=== PATIENT | male | born 1985 | race American Indian/Alaskan Native ===

== ENCOUNTER 2016-08-16 14:32 | Observation (INO) | payer BC ==
[2016-08-16 14:32] VITALS: BMI 27.8
[2016-08-16 14:38] VITALS: TEMP 97.6; O2SAT 100
--- NOTE | 2016-08-16 14:47 | C.PDOC ---
History Of Present Illness <Darrel Soni DO - Last Filed: 08/16/16 19:45> <Cherie Vines - Last Filed: 08/18/16 09:16> 31-year-old male, presents to the emergency department with complaints of left sided chest numbness and near syncope, that started one hour ago. Patient notes onset while walking. Pt notes that numbness radiates to left arm. Patient denies loss of consciousness, cardiac history, or any other medical history. No other complaints at this time. (Cherie Vines) <Darrel Soni DO - Last Filed: 08/16/16 19:45> History Per: Patient History/Exam Limitations: no limitations <Cherie Vines - Last Filed: 08/18/16 09:16> Chief Complaint (Nursing): Weakness/Neurological Deficit Past Medical History Reviewed: Historical Data, Nursing Documentation, Vital Signs - Medical History PMH: Asthma Denies: Depression Family History: States: Unknown Family Hx - Social History Hx Tobacco Use: No Hx Alcohol Use: Yes Hx Substance Use: No - Immunization History Hx Tetanus Toxoid Vaccination: No Hx Influenza Vaccination: No Hx Pneumococcal Vaccination: No <Cherie Vines - Last Filed: 08/18/16 09:16> Vital Signs: Last Vital Signs Temp 97.6 F 08/16/16 14:35 Pulse 87 08/16/16 19:38 Resp 20 08/16/16 19:38 BP 133/80 08/16/16 19:38 Pulse Ox 100 08/18/16 09:13 - [facility] Procedures CLOSURE SKIN & SUBCUTANEOUS NEC (08/06/06) Review Of Systems Except As Marked, All Systems Reviewed And Found Negative. Constitutional: Negative for: Fever, Chills Cardiovascular: Negative for: Chest Pain Respiratory: Negative for: Cough, Shortness of Breath Gastrointestinal: Negative for: Nausea, Vomiting Skin: Negative for: Rash Neurological: Positive for: Numbness. Negative for: Weakness, Headache, Dizziness <Cherie Vines - Last Filed: 08/18/16 09:16> Physical Exam - Physical Exam Appears: Non-toxic, No Acute Distress Skin: Warm, Dry, No Rash Head: Atraumatic, Normacephalic Eye(s): bilateral: Normal Inspection, PERRL Nose: Normal Oral Mucosa: Moist Lips: Normal Appearing Neck: Normal ROM Cardiovascular: Rhythm Regular Respiratory: Normal Breath Sounds, No Accessory Muscle Use Extremity: Normal ROM Neurological/Psych: Oriented x3, Normal Speech <Cherie Vines - Last Filed: 08/18/16 09:16> ED Course And Treatment - Laboratory Results Result Diagrams: 08/16/16 15:02 08/16/16 15:02 <Darrel Soni DO - Last Filed: 08/16/16 19:45> - Laboratory Results Result Diagrams: 08/16/16 15:02 08/16/16 15:02 ECG: Interpreted By Me ECG Rhythm: Sinus Rhythm ECG Interpretation: Normal Rate From EC O2 Sat by Pulse Oximetry: 100 - Radiology CXR: Interpreted by Me, Viewed By Me CXR Interpretation: Yes: No Acute Disease <Cherie Vines - Last Filed: 08/18/16 09:16> NIHSS Stroke Scale - Date/Time Evaluation Performed Date Performed: 08/16/16 Time Performed: 14:48 When Was NIHSS Performed: Baseline - How Severe is the Stoke Level of Consciousness: 0=Alert LOC to Questions: 0=Both comments correct LOC to commands: 0=Obeys both correctly Best Gaze: 0=Normal Visual: 0=No visual loss Facial: 0=Normal Motor Arm - Left: 0=No drift Motor Arm - Right: 0=No drift Motor Leg - Left: 0=No drift Motor Leg - Right: 0=No drift Limb Ataxia: 0=Absent Sensory: 0=Normal Best Language: 0=No aphasia Dysarthia: 0=Normal articulation Extinction & Inattention (Neglect): 0=Normal, no object Score: 0 Severity Of Stroke: 0= No Stroke <Cherie Vines - Last Filed: 08/18/16 09:16> rTPA Inclusion/Exclusion - Refusal of Treatment Patient Refused Treatment: No - Inclusion Criteria for Altepase Patient is 18 years or Older: Yes The Clinical Diagnosis of Ischemic Stroke That is Causing a Potentially Disabling Neurological Deficit: No Time of Onset is Well Established to be Less Than 270 Minute Before Treatment Would Begin: Yes Risk/Benefit Discussed With Patient/Family Member Present: Yes - Exclusion Criteria for Altepase Uncontrolled Hypertension at Time of Treatment (Systolic BP above 185 or Diastolic BP above 110 mmHg): No Active Internal Bleeding: No Known Bleeding Diathesis Including but Not Limited to: Platelets Below 100,000/ mm,PTT Above 40 sec After Heparin Use, Current Use of Oral Anitcoagulant With INR Greater Than 1.7 or PT Greater Than 15 secs: No Evidence of an Intracranial Hemorrhage: No Evidence of Major Acute Infarct With Signs Greater Than 1/3 MCA Territory: No Suspicion of Subarachnoid Hemorrhage on Pretreatment Evaluation Even if CT Head Negative For Hemorrhage: No - Warning to TPA With Conditions Following Conditions Weighed Against Anticipated Benefit: Yes Condition: Stroke Serevity Too Mild <Cherie Vines - Last Filed: 08/18/16 09:16> ED OBSERVATION Discharge: Yes <Darrel Soni DO - Last Filed: 08/16/16 19:45> Date of observation admission: 08/16/16 Time of observation admission: 14:45 <Cherie Vines - Last Filed: 08/18/16 09:16> - Observation admission statement Patient is being placed in observation because:: CHEST PAIN, NEAR SYNCOPE (Cherie Vines) - Goals of Observation Goals of observation are:: NEG ACS, SX IMPROVE (Cherie Vines) - Progress Note Progress Note: 08/16/16 16:41 ASYMPT APEPARS COMFORTABLE VSS. REPEAT TROP @ 1900 08/16/16 19:00 S/O DR DARRYL ROWAN US, DISPO (Cherie Vines) Disposition <Darrel Soni DO - Last Filed: 08/16/16 19:45> Counseled Patient/Family Regarding: Studies Performed, Diagnosis - Disposition Disposition Time: 20:00 <Cherie Vines - Last Filed: 08/18/16 09:16> - Disposition Disposition: HOME/ ROUTINE Condition: GOOD - Clinical Impression Clinical Impression: Chest pain <Darrel Soni DO - Last Filed: 08/16/16 19:45> - Scribe Statement The provider has reviewed the documentation as recorded by the Scribe <Cherie Vines - Last Filed: 08/18/16 09:16> - Scribe Statement Lyudmila Reed (Cherie Vines)
[2016-08-16 15:06] LABS: BASO % 0.6 % (0.0-2.0); EOS # 0.1 K/uL (0.0-0.7); EOS % 2.5 % (0.0-4.0); HEMATOCRIT 42.7 % (35.0-51.0); LYMPH # 1.3 K/uL (1.0-4.3); LYMPH % 32.4 % (20.0-40.0); MEAN CELL VOLUME 88.1 fL (80.0-94.0); MEAN CORPUSCULAR HEMOGLOBIN 29.1 pg (27.0-31.0); MONO # 0.7 K/uL (0.0-0.8); MONO % 16.6 % (0.0-10.0); RED CELL DISTRIBUTION WIDTH 14.5 % (11.5-14.5); WHITE BLOOD COUNT 4.1 K/uL (4.8-10.8)
[2016-08-16 15:15] LABS: CHLORIDE 96 mmol/L (98-107); POTASSIUM 3.8 mmol/L (3.6-5.2); SODIUM 137 mmol/L (132-148)
[2016-08-16 15:17] LABS: ALB/GLOB RATIO 1.3 (1.0-2.1); ALKALINE PHOSPHATASE 51 U/L (38-126); ALT/SGPT 14 U/L (21-72); AST/SGOT 23 U/L (17-59); BILIRUBIN,TOTAL 1.2 mg/dL (0.2-1.3); BLOOD UREA NITROGEN 12 mg/dL (9-20); CARBON DIOXIDE 28 mmol/L (22-30); GFR AFRICAN-AMERICAN > 60; TOTAL PROTEIN 7.6 g/dL (6.3-8.3)
[2016-08-16 15:18] LABS: CALCIUM 8.9 mg/dl (8.6-10.4); GLUCOSE,RANDOM 89 mg/dL (75-110)
--- NOTE | 2016-08-16 16:09 | CT ---
PROCEDURE: CT HEAD WITHOUT CONTRAST. HISTORY: Left arm numbness COMPARISON: 12/20/2015 TECHNIQUE: Axial computed tomography images were obtained through the head/brain without intravenous contrast. Radiation dose: Total exam DLP = 898 mGy-cm. This CT exam was performed using one or more of the following dose reduction techniques: Automated exposure control, adjustment of the mA and/or kV according to patient size, and/or use of iterative reconstruction technique. FINDINGS: HEMORRHAGE: No intracranial hemorrhage. BRAIN: No mass effect or edema. No atrophy or chronic microvascular ischemic changes. VENTRICLES: Unremarkable. No hydrocephalus. CALVARIUM: Unremarkable. PARANASAL SINUSES: Unremarkable as visualized. No significant inflammatory changes. MASTOID AIR CELLS: Unremarkable as visualized. No inflammatory changes. OTHER FINDINGS: None. IMPRESSION: No acute intracranial abnormality. If focal neurologic deficit persists, consider MRI.
--- NOTE | 2016-08-16 16:24 | RAD ---
PROCEDURE: CHEST RADIOGRAPH, 1 VIEW HISTORY: chest pain COMPARISON: None available. FINDINGS: LUNGS: Mild venous congestion. PLEURA: No pneumothorax or pleural fluid seen. CARDIOVASCULAR: Normal. OSSEOUS STRUCTURES: No significant abnormalities. VISUALIZED UPPER ABDOMEN: Normal. OTHER FINDINGS: None. IMPRESSION: Mild venous congestion.
[2016-08-16 19:39] VITALS: BP 133/80; PULSE 87; RESP 20
--- NOTE | 2016-08-18 11:38 | CARD ---
APPROVED REPORT EKG Measurement Heart [id number] 138P36 [id number] <Conclusion> Normal sinus rhythm with sinus arrhythmia Normal ECG
== END 2016-08-16 19:46 | disposition home or self-care (01) ==
LOC: C.ER 14:32 → C.9OBSV 14:45
PROVIDERS: ADMIT Emergency Medicine; ATTEND Emergency Medicine
DX: R07.9 Chest pain, unspecified (principal); R55 Syncope and collapse; R20.0 Anesthesia of skin; J45.909 Unspecified asthma, uncomplicated
CPT/HCPCS: 36415; 70450; 71010; 80053; 82948; 84484; 85025; 85378; 99285; G0378

== ENCOUNTER 2016-10-11 13:08 | Observation (INO) | payer BC ==
[2016-10-11 13:08] VITALS: BMI 27.8
[2016-10-11 13:15] VITALS: RESP 18; O2SAT 100
--- NOTE | 2016-10-11 13:45 | C.PDOC ---
History Of Present Illness 31-year-old male, presents to the emergency department with complaints of right chest discomfort x2 days. Patient notes that discomfort is constant and localized. States "I just don't feel right." He is s/p endoscopy 04/25, "they said it was all good" pending colonoscopy. No shortness of breath, nausea/ vomiting. Patient seen on 08/16 for chest pain and syncope. CO R CHEST DISCOMFORT X 2 DAYS. CONSTANT LOCALIZED. "I JUST DONT FEEL RIGHT". S/ P ENDOCSCOPY 04/2016, "THEY SAID IT WAS ALL GOOD" PENDING COLONOSCOPY. NO SOB, NV. SEEN 08/16 FOR CP, SYNCOPE EXAM NEG Time Seen by Provider: 10/11/16 13:38 Chief Complaint (Nursing): Chest Pain History Per: Patient History/Exam Limitations: no limitations Onset/Duration Of Symptoms: Days Current Symptoms Are (Timing): Still Present Severity: Moderate Past Medical History Reviewed: Historical Data, Nursing Documentation, Vital Signs Vital Signs: Last Vital Signs Temp 98.2 F 10/11/16 13:15 Pulse 84 10/11/16 13:15 Resp 18 10/11/16 13:15 BP 155/99 H 10/11/16 14:20 Pulse Ox 100 10/11/16 16:41 - Medical History PMH: Asthma Denies: Depression - [facility] Procedures CLOSURE SKIN & SUBCUTANEOUS NEC (08/06/06) Family History: States: No Known Family Hx - Social History Hx Tobacco Use: No Hx Alcohol Use: Yes Hx Substance Use: No - Immunization History Hx Tetanus Toxoid Vaccination: No Hx Influenza Vaccination: No Hx Pneumococcal Vaccination: No Review Of Systems Except As Marked, All Systems Reviewed And Found Negative. Constitutional: Negative for: Fever, Chills Cardiovascular: Positive for: Chest Pain. Negative for: Palpitations Respiratory: Negative for: Shortness of Breath Gastrointestinal: Negative for: Nausea, Vomiting Neurological: Negative for: Weakness, Numbness, Headache, Dizziness Physical Exam - Physical Exam Appears: Non-toxic, No Acute Distress Skin: Warm, Dry, No Rash Head: Atraumatic, Normacephalic Eye(s): bilateral: Normal Inspection, PERRL, EOMI Nose: Normal Oral Mucosa: Moist Lips: Normal Appearing Neck: Normal ROM Cardiovascular: Rhythm Regular, No Murmur Respiratory: Normal Breath Sounds, No Accessory Muscle Use Gastrointestinal/Abdominal: Soft, No Tenderness Extremity: Normal ROM Neurological/Psych: Oriented x3 ED Course And Treatment - Laboratory Results Result Diagrams: 10/11/16 14:10 10/11/16 14:10 ECG: Interpreted By Me ECG Rhythm: Sinus Rhythm ECG Interpretation: Normal Rate From EC O2 Sat by Pulse Oximetry: 100 Pulse Ox Interpretation: Normal - Radiology CXR: Interpreted by Me CXR Interpretation: Yes: No Acute Disease Progress - Data Reviewed Data Reviewed: EKG, Old records ED OBSERVATION Discharge: Yes Date of observation admission: 10/11/16 Time of observation admission: 13:56 - Observation admission statement Patient is being placed in observation because:: CHEST/RUQ PAIN - Goals of Observation Goals of observation are:: NEG ACUTE ABD, SX IMPROVE - Progress Note Progress Note: 10/11/16 16:22 LABS, US NEG 10/11/16 16:42 VSS ADVISED NEED TO PMD FU. Disposition Counseled Patient/Family Regarding: Studies Performed, Diagnosis, Need For Followup, Rx Given - Disposition Disposition: HOME/ ROUTINE Disposition Time: 16:42 Condition: GOOD - Clinical Impression Clinical Impression: Abdominal discomfort, Chest discomfort - Scribe Statement The provider has reviewed the documentation as recorded by the Radibbala Reed All medical record entries made by the Radibbala were at my direction and personally dictated by me. I have reviewed the chart and agree that the record accurately reflects my personal performance of the history, physical exam, medical decision making, and the department course for this patient. I have also personally directed, reviewed, and agree with the discharge instructions and disposition.
[2016-10-11] MEDS ORDERED: Sodium Chloride 0.9% 1,000 ML IV ONE ×2 (13:55)
[2016-10-11 14:19] LABS: BASO % 0.8 % (0.0-2.0); EOS # 0.1 K/uL (0.0-0.7); EOS % 1.5 % (0.0-4.0); HEMATOCRIT 45.2 % (35.0-51.0); LYMPH # 1.2 K/uL (1.0-4.3); LYMPH % 31.7 % (20.0-40.0); MEAN CELL VOLUME 87.2 fL (80.0-94.0); MEAN CORPUSCULAR HEMOGLOBIN 29.5 pg (27.0-31.0); MEAN CORPUSCULAR HGB CONC 33.8 g/dL (33.0-37.0); MONO # 0.6 K/uL (0.0-0.8); MONO % 16.2 % (0.0-10.0); NRBC % 0.1 % (0.0-2.0); RED CELL DISTRIBUTION WIDTH 13.5 % (11.5-14.5); WHITE BLOOD COUNT 3.9 K/uL (4.8-10.8)
[2016-10-11 14:24] LABS: CHLORIDE 93 mmol/L (98-107)
[2016-10-11 14:25] LABS: POTASSIUM 3.3 mmol/L (3.6-5.2); SODIUM 132 mmol/L (132-148)
[2016-10-11 14:27] LABS: ALB/GLOB RATIO 1.3 (1.0-2.1); ALKALINE PHOSPHATASE 70 U/L (38-126); AST/SGOT 23 U/L (17-59); BILIRUBIN,TOTAL 1.9 mg/dL (0.2-1.3); BLOOD UREA NITROGEN 8 mg/dL (9-20); CARBON DIOXIDE 27 mmol/L (22-30); GFR AFRICAN-AMERICAN > 60; TOTAL PROTEIN 8.1 g/dL (6.3-8.3)
[2016-10-11 14:28] LABS: ALT/SGPT 22 U/L (21-72); GLUCOSE,RANDOM 110 mg/dL (75-110)
--- NOTE | 2016-10-11 15:27 | US ---
HISTORY: abd pain COMPARISON: None. TECHNIQUE: Sonographic evaluation of the abdomen. FINDINGS: LIVER: Liver is unremarkable in echogenicity. No focal liver mass is identified. No intrahepatic biliary ductal dilatation is identified. Portal vein is patent with normal hepatopetal flow. GALLBLADDER: The gallbladder is physiologically distended. No gallstones, gallbladder wall thickening, or pericholecystic fluid is identified.No sonographic Clark's sign was appreciated during the exam. COMMON BILE DUCT: Normal in caliber measuring 0.3 cm. PANCREAS: Not visualized due to overlying bowel gas. RIGHT KIDNEY: Measures 11cm. Unremarkable in echogenicity. No shadowing renal stone, cyst, or hydronephrosis is identified AORTA: No aneurysmal dilatation of the visualized portions. IVC: Visualized portions are unremarkable.. OTHER FINDINGS: None. IMPRESSION: Unremarkable right upper quadrant ultrasound.
--- NOTE | 2016-10-11 16:30 | RAD ---
HISTORY: abd pain COMPARISON: Comparison chest 08/26/2016 TECHNIQUE: Chest PA and lateral FINDINGS: LUNGS: No active pulmonary disease. PLEURA: No significant pleural effusion identified. No pneumothorax apparent. CARDIOVASCULAR: Normal. OSSEOUS STRUCTURES: No significant abnormalities. VISUALIZED UPPER ABDOMEN: Normal. OTHER FINDINGS: None. IMPRESSION: No active disease.
[2016-10-11 16:43] VITALS: BP 136/80; PULSE 77; TEMP 97.9
[2016-10-11] MEDS ORDERED: Pantoprazole 40 mg EC Tab PO STA (16:45)
--- NOTE | 2016-10-17 16:23 | CARD ---
APPROVED REPORT EKG Measurement Heart [id number] 150P54 [id number] <Conclusion> Normal sinus rhythm Possible Left atrial enlargement Nonspecific T wave abnormality Abnormal ECG
== END 2016-10-11 16:42 | disposition home or self-care (01) ==
LOC: C.ER 13:08 → C.9OBSV 13:30
PROVIDERS: ADMIT Emergency Medicine; ATTEND Emergency Medicine
DX: R07.89 Other chest pain (principal)
CPT/HCPCS: 36415; 71020; 76705; 80053; 83690; 84484; 85025; 96360; 99284; G0378

== ENCOUNTER 2016-10-29 16:26 | Emergency (ER) | payer BC ==
[2016-10-29 16:27] VITALS: BMI 27.8
[2016-10-29] MEDS ORDERED: Sodium Chloride 0.9% 1,000 ML IV ONE (16:58)
[2016-10-29] MEDS ORDERED: Sodium Chloride 0.9% 1,000 ML ONE (17:07)
[2016-10-29 17:28] LABS: BASO % 0.9 % (0.0-2.0); EOS % 0.3 % (0.0-4.0); HEMATOCRIT 46.1 % (35.0-51.0); LYMPH # 0.7 K/uL (1.0-4.3); MEAN CELL VOLUME 88.7 fL (80.0-94.0); MEAN CORPUSCULAR HEMOGLOBIN 29.7 pg (27.0-31.0); MEAN CORPUSCULAR HGB CONC 33.5 g/dL (33.0-37.0); MEAN PLATELET VOLUME 6.9 fL (7.2-11.7); MONO # 0.4 K/uL (0.0-0.8); MONO % 8.2 % (0.0-10.0); RED CELL DISTRIBUTION WIDTH 13.3 % (11.5-14.5); WHITE BLOOD COUNT 5.1 K/uL (4.8-10.8)
[2016-10-29 17:36] LABS: CHLORIDE 93 mmol/L (98-107)
[2016-10-29 17:37] LABS: POTASSIUM 3.5 mmol/L (3.6-5.2); SODIUM 132 mmol/L (132-148)
[2016-10-29 17:39] LABS: ALB/GLOB RATIO 1.1 (1.0-2.1); ALKALINE PHOSPHATASE 70 U/L (38-126); ALT/SGPT 23 U/L (21-72); AST/SGOT 20 U/L (17-59); BILIRUBIN,TOTAL 1.7 mg/dL (0.2-1.3); BLOOD UREA NITROGEN 8 mg/dL (9-20); CALCIUM 8.5 mg/dl (8.6-10.4); CARBON DIOXIDE 26 mmol/L (22-30); GFR AFRICAN-AMERICAN > 60; GLUCOSE,RANDOM 95 mg/dL (75-110); TOTAL PROTEIN 8.2 g/dL (6.3-8.3)
--- NOTE | 2016-10-29 18:36 | C.PDOC ---
History Of Present Illness A 31 y/o male comes in stating "I don't feel right" with mild nausea and dizziness for about 3 days. Pt notes chest pain, SOB, but denies vomiting, fever , chills, sick contact, lightheadedness, palpitations, lower extremity pain, diaphoresis, weakness, or any other complaints. Pt states he is eating normally. Time Seen by Provider: 10/29/16 17:34 Chief Complaint (Nursing): Dizziness/Lightheaded History Per: Patient History/Exam Limitations: no limitations Onset/Duration Of Symptoms: Days Current Symptoms Are (Timing): Still Present Fall Associated With With Symptoms: No Severity: Mild Recent travel outside of the [place]: No Additional History Per: Patient Past Medical History Reviewed: Historical Data, Nursing Documentation, Vital Signs Vital Signs: Last Vital Signs Temp 98.1 F 10/29/16 18:45 Pulse 73 10/29/16 18:45 Resp 18 10/29/16 18:45 BP 136/79 10/29/16 18:45 Pulse Ox 100 10/29/16 18:45 - Medical History PMH: Asthma Denies: Depression - [facility] Procedures CLOSURE SKIN & SUBCUTANEOUS NEC (08/06/06) Family History: States: Unknown Family Hx - Social History Hx Tobacco Use: No Hx Alcohol Use: Yes Hx Substance Use: No - Immunization History Hx Tetanus Toxoid Vaccination: No Hx Influenza Vaccination: No Hx Pneumococcal Vaccination: No Review Of Systems Except As Marked, All Systems Reviewed And Found Negative. Constitutional: Positive for: Malaise. Negative for: Fever, Chills, Sweats, Weakness Cardiovascular: Positive for: Chest Pain. Negative for: Palpitations, Light Headedness Respiratory: Positive for: Shortness of Breath Gastrointestinal: Positive for: Nausea. Negative for: Vomiting Musculoskeletal: Negative for: Leg Pain Neurological: Positive for: Dizziness Physical Exam - Physical Exam Appears: Non-toxic, No Acute Distress Skin: Warm, Dry Head: Atraumatic, Normacephalic Eye(s): bilateral: Normal Inspection Oral Mucosa: Moist Neck: Supple Chest: Symmetrical, No Tenderness Cardiovascular: Rhythm Regular, No Murmur Respiratory: Normal Breath Sounds, No Accessory Muscle Use, No Rales, No Rhonchi , No Wheezing Gastrointestinal/Abdominal: Soft, No Tenderness Back: Normal Inspection Neurological/Psych: Oriented x3, Normal Speech, Normal Cognition, Other (No focal deficit) Gait: Steady ED Course And Treatment - Laboratory Results Result Diagrams: 10/29/16 17:23 10/29/16 17:23 O2 Sat by Pulse Oximetry: 99 (RA) Pulse Ox Interpretation: Normal Medical Decision Making Medical Decision Making: Impression: A 31 y/o male comes in stating "I don't feel right" with mild nausea and dizziness for about 3 days. Plans: Pepcid Zpfran IV fluids Reassess Disposition - Disposition Referrals: [facility] Alondra Nazario, [Non-Staff] - Disposition: HOME/ ROUTINE Disposition Time: 18:00 Condition: GOOD Additional Instructions: Thank you for letting us take care of you today. Your provider was Dr. Soni. You were treated for sinusitis. The emergency medical care you received today was directed at your acute symptoms. If you were prescribed any medication, please fill it and take as directed. It may take several days for your symptoms to resolve. Return to the Emergency Department if your symptoms worsen, do not improve, or if you have any other problems. Please contact your doctor or call one of the physicians/clinics you have been referred to that are listed on the Patient Visit Information form that is included in your discharge packet. Bring any paperwork you were given at discharge with you along with any medications you are taking to your follow up visit. Our treatment cannot replace ongoing medical care by a primary care provider (PCP) outside of the emergency department. Thank you for allowing the [facility] team to be part of your care today. Follow up with your doctor in 2 days to be re-evaluated. Prescriptions: Amoxicillin/Clavulanate [Augmentin 875 MG-125 MG] 1 tab PO Q12 #14 tab Ibuprofen [Motrin] 600 mg PO Q6 PRN #20 tab PRN Reason: Pain, Moderate (4-7) Instructions: Sinusitis (ED) - Clinical Impression Clinical Impression: Sinusitis - Scribe Statement The provider has reviewed the documentation as recorded by the Scribe Emilia patrick All medical record entries made by the Scribe were at my direction and personally dictated by me. I have reviewed the chart and agree that the record accurately reflects my personal performance of the history, physical exam, medical decision making, and the department course for this patient. I have also personally directed, reviewed, and agree with the discharge instructions and disposition.
[2016-10-29 18:46] VITALS: BP 136/79; PULSE 73; RESP 18; TEMP 98.1
[2016-10-29 18:53] VITALS: O2SAT 99
== END 2016-10-29 19:10 | disposition home or self-care (01) ==
LOC: C.ER 16:26
DX: J32.9 Chronic sinusitis, unspecified (principal)
CPT/HCPCS: 80053; 83690; 85025; 99285; G0480; J7040

== ENCOUNTER 2016-11-02 09:19 | Emergency (ER) | payer BC ==
[2016-11-02 09:19] VITALS: BMI 27.8
--- NOTE | 2016-11-02 10:14 | C.PDOC ---
History Of Present Illness Patient BIBA for evaluation of RUQ pain, and sesnation of his heart racing since waking up this morning. Patient states symptoms began a few months ago, but he feels like they have been worsening. During most recent ED visits, blood work, CXR, RUQ US done and were unremarkable. He denies chest pain, SOB, fever, cough, vomiting diarrhea. He does state he has been having yellow colored stools. Patient has GI specialist, has had endoscopy which was "normal ", however is scheduled to have upcoming colonoscopy. Time Seen by Provider: 11/02/16 09:36 Chief Complaint (Nursing): Palpitations History Per: Patient History/Exam Limitations: no limitations Onset/Duration Of Symptoms: Persistent Current Symptoms Are (Timing): Still Present Severity: Mild Past Medical History Reviewed: Historical Data, Nursing Documentation, Vital Signs Vital Signs: Last Vital Signs Temp 97.8 F 11/02/16 12:49 Pulse 77 11/02/16 12:49 Resp 16 11/02/16 12:49 BP 132/86 11/02/16 12:49 Pulse Ox 95 11/02/16 13:24 - Medical History PMH: Asthma - [facility] Procedures CLOSURE SKIN & SUBCUTANEOUS NEC (08/06/06) Family History: States: No Known Family Hx - Social History Hx Tobacco Use: No Hx Alcohol Use: Yes Hx Substance Use: No - Immunization History Hx Tetanus Toxoid Vaccination: No Hx Influenza Vaccination: No Hx Pneumococcal Vaccination: No Review Of Systems Except As Marked, All Systems Reviewed And Found Negative. Constitutional: Negative for: Fever, Chills Cardiovascular: Positive for: Palpitations. Negative for: Chest Pain Respiratory: Negative for: Cough, Shortness of Breath Gastrointestinal: Positive for: Nausea, Abdominal Pain. Negative for: Vomiting , Diarrhea Physical Exam - Physical Exam Appears: Well, Non-toxic, No Acute Distress Oral Mucosa: Moist Cardiovascular: Rhythm Regular Respiratory: Normal Breath Sounds, No Rales, No Rhonchi, No Wheezing Gastrointestinal/Abdominal: Bowel Sounds, Soft, Tenderness (RUQ mild TTP), No Guarding, No Rebound Extremity: Normal ROM Neurological/Psych: Oriented x3 ED Course And Treatment - Laboratory Results Result Diagrams: 11/02/16 10:20 11/02/16 10:20 ECG: Interpreted By Me, Viewed By Me (NSR 68 bpm, normal axis, no acute ST/T wave changes) ECG Interpretation: Normal O2 Sat by Pulse Oximetry: 95 (RA) Pulse Ox Interpretation: Normal Progress Note: Blood work, EKG, CT scan abd/pelvis ordered and reviewed. Patient given IVB NS bolus, PO Kdur. Reevaluation Time: 12:45 Reassessment Condition: Improved (Patient reassessed, is currently resting comfortably, in no pain/distress. On exam, abdomen is soft and nontender. Blood work & EKG unremarkable except for milh hypokalemia. Additional blood work and ultrasound done during prior visits - ddimer, babak, UDS and US (-). Patient instructed to follow up with GI specialist within 1 week for colonoscopy scheduling. He has GI to follow up with, not on staff here at [facility]. Patient understands he should return to ED if symptoms worsen.) Disposition Counseled Patient/Family Regarding: Studies Performed, Diagnosis, Need For Followup - Disposition Disposition: HOME/ ROUTINE Disposition Time: 12:45 Condition: STABLE Additional Instructions: FOLLOW UP WITH YOUR GI SPECIALIST WITHIN 1 WEEK RETURN TO ER IF SYMPTOMS WORSEN Instructions: Acute Abdominal Pain (ED) Print Language: BRITISH - POA Present On Arrival: None - Clinical Impression Clinical Impression: Palpitations, RUQ abdominal pain
[2016-11-02] MEDS ORDERED: Sodium Chloride 0.9% 1,000 ML ONE (10:16)
[2016-11-02] MEDS ORDERED: Sodium Chloride 0.9% 1,000 ML IV ONE (10:16)
[2016-11-02 10:24] LABS: BASO # 0.1 K/uL (0.0-0.2); BASO % 0.9 % (0.0-2.0); EOS # 0.1 K/uL (0.0-0.7); HEMATOCRIT 42.3 % (35.0-51.0); LYMPH # 1.4 K/uL (1.0-4.3); LYMPH % 25.7 % (20.0-40.0); MEAN CELL VOLUME 87.4 fL (80.0-94.0); MEAN CORPUSCULAR HEMOGLOBIN 29.1 pg (27.0-31.0); MEAN CORPUSCULAR HGB CONC 33.3 g/dL (33.0-37.0); MEAN PLATELET VOLUME 7.1 fL (7.2-11.7); MONO # 0.7 K/uL (0.0-0.8); MONO % 12.6 % (0.0-10.0); NRBC % 0.1 % (0.0-2.0); RED CELL DISTRIBUTION WIDTH 13.1 % (11.5-14.5); WHITE BLOOD COUNT 5.5 K/uL (4.8-10.8)
[2016-11-02 10:33] LABS: CHLORIDE 95 mmol/L (98-107); SODIUM 134 mmol/L (132-148)
[2016-11-02 10:34] LABS: POTASSIUM 3.1 mmol/L (3.6-5.2)
[2016-11-02 10:36] LABS: ALB/GLOB RATIO 1.2 (1.0-2.1); ALKALINE PHOSPHATASE 65 U/L (38-126); ALT/SGPT 16 U/L (21-72); AST/SGOT 18 U/L (17-59); BILIRUBIN,TOTAL 1.7 mg/dL (0.2-1.3); BLOOD UREA NITROGEN 9 mg/dL (9-20); CARBON DIOXIDE 27 mmol/L (22-30); GFR AFRICAN-AMERICAN > 60; GLUCOSE,RANDOM 90 mg/dL (75-110); TOTAL PROTEIN 7.5 g/dL (6.3-8.3)
[2016-11-02 10:37] LABS: CALCIUM 8.3 mg/dl (8.6-10.4)
[2016-11-02] MEDS ORDERED: Potassium Chloride 20 mEq ER Tab PO STA (10:39)
[2016-11-02] MEDS ORDERED: Potassium Chloride 20 mEq ER Tab PO ONE (10:50)
[2016-11-02] MEDS ORDERED: Iohexol 300 100 ML IJ ONE (11:12)
--- NOTE | 2016-11-02 12:22 | CT ---
PROCEDURE: CT Abdomen and Pelvis with contrast HISTORY: PERSISTENT ABDOMINAL PAIN COMPARISON: None. TECHNIQUE: Contrast dose: 100 mL Omnipaque 300 Radiation dose: Total exam DLP = 413.35 mGy-cm. This CT exam was performed using one or more of the following dose reduction techniques: Automated exposure control, adjustment of the mA and/or kV according to patient size, and/or use of iterative reconstruction technique. FINDINGS: LOWER THORAX: Unremarkable. LIVER: Unremarkable. No gross lesion or ductal dilatation. GALLBLADDER AND BILE DUCTS: Unremarkable. PANCREAS: Unremarkable. No gross lesion or ductal dilatation. SPLEEN: Unremarkable. ADRENALS: Unremarkable. No mass. KIDNEYS AND URETERS: Very mild bilateral hydronephrosis and hydroureter. No renal mass, calculus or hydronephrosis. No ureteral calculus. VASCULATURE: Unremarkable. No aortic aneurysm. BOWEL: Unremarkable. No obstruction. No gross mural thickening. APPENDIX: Normal appendix. PERITONEUM: Unremarkable. No free fluid. No free air. LYMPH NODES: Unremarkable. No enlarged lymph nodes. BLADDER: Distended. No mural thickening. REPRODUCTIVE: Unremarkable prostate BONES: No acute fracture. OTHER FINDINGS: None. IMPRESSION: Distended bladder with very mild bilateral hydroureteronephrosis. Uncertain significance. Consider bladder outlet obstruction. Correlate clinically. No other abnormality.
[2016-11-02 12:50] VITALS: BP 132/86; PULSE 77; RESP 16; TEMP 97.8
[2016-11-02 12:59] VITALS: O2SAT 95
--- NOTE | 2016-11-03 10:06 | CARD ---
APPROVED REPORT EKG Measurement Heart [id number] [place] 144P44 [id number] <Conclusion> Normal sinus rhythm Normal ECG
== END 2016-11-02 13:08 | disposition home or self-care (01) ==
LOC: C.ER 09:19
DX: R00.2 Palpitations (principal); R10.11 Right upper quadrant pain
CPT/HCPCS: 74177; 80053; 83690; 85025; 93005; 96360; 99284; J7040; Q9967

== ENCOUNTER 2016-11-12 06:24 | Emergency (ER) | payer BC ==
[2016-11-12 06:24] VITALS: BMI 27.1
[2016-11-12 06:40] VITALS: TEMP 98
[2016-11-12 07:46] LABS: SPERM URINE RARE /hpf; URINE BILIRUBIN NEGATIVE (NEGATIVE); URINE BLOOD NEGATIVE (NEGATIVE); URINE CLARITY Hazy (Clear); URINE COLOR Straw (YELLOW); URINE GLUCOSE (UA) NORMAL (Normal); URINE LEUKOCYTE ESTERASE NEG Leu/uL (Negative); URINE NITRATE NEGATIVE (NEGATIVE); URINE PROTEIN NEGATIVE (NEGATIVE); URINE UROBILINOGEN NORMAL mg/dL (0.2-1.0)
[2016-11-12 07:47] LABS: BASO # 0.1 K/uL (0.0-0.2); EOS # 0.1 K/uL (0.0-0.7); EOS % 1.2 % (0.0-4.0); HEMOGLOBIN 15.1 g/dL (12.0-18.0); LYMPH # 1.7 K/uL (1.0-4.3); LYMPH % 20.8 % (20.0-40.0); MEAN CELL VOLUME 86.1 fL (80.0-94.0); MEAN CORPUSCULAR HEMOGLOBIN 29.4 pg (27.0-31.0); MEAN CORPUSCULAR HGB CONC 34.1 g/dL (33.0-37.0); MEAN PLATELET VOLUME 7.1 fL (7.2-11.7); MONO # 0.8 K/uL (0.0-0.8); MONO % 9.7 % (0.0-10.0); NEUT # 5.5 K/uL (1.8-7.0); NEUT % 67.3 % (50.0-75.0); NRBC % 0.1 % (0.0-2.0); RBC 5.13 Mil/uL (4.40-5.90); RED CELL DISTRIBUTION WIDTH 13.3 % (11.5-14.5); WHITE BLOOD COUNT 8.2 K/uL (4.8-10.8)
[2016-11-12 08:02] LABS: GFR AFRICAN-AMERICAN > 60; GFR NON-AFRICAN AMERICAN > 60
[2016-11-12 08:03] LABS: ALB/GLOB RATIO 1.1 (1.0-2.1); ALT/SGPT 223 U/L (21-72); AST/SGOT 102 U/L (17-59); BLOOD UREA NITROGEN 18 mg/dL (9-20); CALCIUM 9.5 mg/dl (8.6-10.4)
[2016-11-12 08:10] LABS: BARBITURATES, UR NEGATIVE (NEGATIVE)
[2016-11-12 08:11] LABS: BENZODIAZEPINES, UR NEGATIVE (NEGATIVE)
[2016-11-12 08:14] LABS: OPIATES, UR NEGATIVE (NEGATIVE); PHENCYCLIDINE, UR NEGATIVE (NEGATIVE)
--- NOTE | 2016-11-12 08:22 | C.PDOC ---
History Of Present Illness 31-year-old male, presents to the emergency department with complaints of chest pain, palpitations and anxiety. Patient states he was drinking "go-lightly" in order to prepare for colonoscopy, but he feels that he drank too much, and became dehydrated, after which he drank a lot of water, causing his Sodium to drop and have a seizure. patient was admitted to the hospital in order to regulate sodium, but his blood pressure began rising; Patient was treated with anti-hypertensive medication, but he developed anxiety, associated with palpitations and chest pain, resulting in him coming to the ED for evaluation. Denies any nausea/vomiting, headache, fevers, chills, shortness of breath, dizziness, or any other associated symptoms. No other complaints at this time. Time Seen by Provider: 11/12/16 07:13 Chief Complaint (Nursing): Chest Pain Past Medical History Reviewed: Historical Data, Nursing Documentation, Vital Signs Vital Signs: Last Vital Signs Temp 98 F 11/12/16 06:31 Pulse 95 H 11/12/16 06:52 Resp 16 11/12/16 06:31 BP 137/96 H 11/12/16 06:31 Pulse Ox 98 11/12/16 08:30 - Medical History PMH: Asthma Denies: Depression, Chronic Kidney Disease - [facility] Procedures CLOSURE SKIN & SUBCUTANEOUS NEC (08/06/06) Family History: States: No Known Family Hx - Social History Hx Tobacco Use: No Hx Alcohol Use: Yes Hx Substance Use: No - Immunization History Hx Tetanus Toxoid Vaccination: No Hx Influenza Vaccination: No Hx Pneumococcal Vaccination: No Review Of Systems Except As Marked, All Systems Reviewed And Found Negative. Constitutional: Negative for: Fever, Chills Cardiovascular: Positive for: Chest Pain, Palpitations Respiratory: Negative for: Shortness of Breath Gastrointestinal: Negative for: Nausea, Vomiting Musculoskeletal: Negative for: Back Pain Neurological: Negative for: Weakness, Numbness, Headache, Dizziness Psych: Positive for: Anxiety Physical Exam - Physical Exam Appears: Non-toxic, No Acute Distress, Other (appears anxious) Skin: Warm, Dry, No Rash Head: Atraumatic, Normacephalic Eye(s): bilateral: Normal Inspection, PERRL, EOMI Nose: Normal Oral Mucosa: Moist Lips: Normal Appearing Neck: Normal ROM Cardiovascular: Rhythm Regular, No Murmur Respiratory: Normal Breath Sounds, No Accessory Muscle Use Gastrointestinal/Abdominal: Soft, No Tenderness Extremity: Normal ROM Neurological/Psych: Oriented x3, Normal Speech ED Course And Treatment - Laboratory Results Result Diagrams: 11/12/16 07:36 11/12/16 07:36 O2 Sat by Pulse Oximetry: 98 Medical Decision Making Medical Decision Making: Plan: * CMP, UDS, Trop * CBC * UA * Reassess and Disposition EKG Rate 98bpm Rhythm NSR Interpret No Acute ST/T wave changes Normal labs. Plan to discharge with follow up. Disposition Counseled Patient/Family Regarding: Studies Performed, Diagnosis, Need For Followup - Disposition Referrals: [facility] at [facility] [Outside] Disposition: HOME/ ROUTINE Disposition Time: 08:33 Condition: STABLE Additional Instructions: Follow up with your doctor or our clinic. Instructions: Palpitations (ED) Forms: General Discharge Instructions - POA Present On Arrival: None - Clinical Impression Clinical Impression: Palpitations - Scribe Statement The provider has reviewed the documentation as recorded by the Scribe (Samantha Reed) All medical record entries made by the Scribe were at my direction and personally dictated by me. I have reviewed the chart and agree that the record accurately reflects my personal performance of the history, physical exam, medical decision making, and the department course for this patient. I have also personally directed, reviewed, and agree with the discharge instructions and disposition.
[2016-11-12 08:44] VITALS: BP 129/76; PULSE 85; RESP 18; O2SAT 100
--- NOTE | 2016-11-14 07:10 | CARD ---
APPROVED REPORT EKG Measurement Heart [id number] <Conclusion> Normal sinus rhythm Nonspecific T wave abnormality Abnormal ECG
== END 2016-11-12 08:57 | disposition home or self-care (01) ==
LOC: C.ER 06:24
DX: R00.2 Palpitations (principal)
CPT/HCPCS: 80053; 81001; 84484; 85025; 99283; G0480

== ENCOUNTER 2016-12-16 14:19 | Emergency (ER) | payer BC | END 2016-12-16 18:30 | disposition home or self-care (01) | LOC: C.ER 14:19 ==

== ENCOUNTER 2018-09-17 16:37 | Emergency (ER) | payer BC, MEDICAID, OTHER ==
[2018-09-17 16:58] VITALS: BMI 29.0
[2018-09-17] MEDS ORDERED: Sodium Chloride 0.9% 1,000 ML IV ONE (17:52)
[2018-09-17 18:37] LABS: BASO % 0.6 % (0.0-2.0); EOS # 0.1 K/uL (0.0-0.7); EOS % 0.9 % (0.0-4.0); HEMOGLOBIN 16.4 g/dL (12.0-18.0); LYMPH # 1.1 K/uL (1.0-4.3); LYMPH % 16.3 % (20.0-40.0); MEAN CELL VOLUME 87.6 fL (80.0-94.0); MEAN CORPUSCULAR HEMOGLOBIN 29.9 pg (27.0-31.0); MEAN CORPUSCULAR HGB CONC 34.2 g/dL (33.0-37.0); MEAN PLATELET VOLUME 6.9 fL (7.2-11.7); MONO # 0.7 K/uL (0.0-0.8); MONO % 10.1 % (0.0-10.0); NEUT # 4.6 K/uL (1.8-7.0); NEUT % 72.1 % (50.0-75.0); NRBC % 0.2 % (0.0-2.0); RBC 5.48 Mil/uL (4.40-5.90); RED CELL DISTRIBUTION WIDTH 13.8 % (11.5-14.5); WHITE BLOOD COUNT 6.4 K/uL (4.8-10.8)
--- NOTE | 2018-09-17 18:41 | RAD ---
Date of service: 09/17/2018 HISTORY: chest pain COMPARISON: 10/11/2016 TECHNIQUE: Chest PA and lateral views FINDINGS: LUNGS: No active pulmonary disease. PLEURA: No significant pleural effusion identified. No pneumothorax apparent. CARDIOVASCULAR: No aortic atherosclerotic calcification present. Normal cardiac size. No pulmonary vascular congestion. OSSEOUS STRUCTURES: No significant abnormalities. VISUALIZED UPPER ABDOMEN: Normal. OTHER FINDINGS: None. IMPRESSION: No active disease. No significant interval change compared to the prior examination(s).
[2018-09-17 18:47] LABS: INR 1.1; PARTIAL THROMBOPLASTIN TIME 35.4 SECONDS (21-34); PROTHROMBIN TIME 12.1 SECONDS (9.7-12.2)
[2018-09-17 18:49] LABS: ALB/GLOB RATIO 1.2 (1.0-2.1); ALBUMIN 4.7 g/dL (3.5-5.0); ALT/SGPT 18 U/L (21-72); AST/SGOT 22 U/L (17-59); BLOOD UREA NITROGEN 9 mg/dL (9-20); GFR NON-AFRICAN AMERICAN > 60; LIPASE 39 U/L (23-300)
--- NOTE | 2018-09-17 18:54 | C.PDOC ---
History Of Present Illness 33 y/o male, with history of anxiety, comes in to ED with vague complaints of not feeling well, having decreased appetite, and feeling like theres a ball in his chest. Patient is a poor historian. Reports of increased urine frequency. Denies any fever or other complaints. Time Seen by Provider: 09/17/18 17:44 Chief Complaint (Nursing): Abdominal Pain History Per: Patient History/Exam Limitations: no limitations Onset/Duration Of Symptoms: Hrs Current Symptoms Are (Timing): Still Present Past Medical History Reviewed: Historical Data, Nursing Documentation, Vital Signs Vital Signs: Last Vital Signs Temp 97.6 F 09/17/18 16:50 Pulse 89 09/17/18 16:50 Resp 18 09/17/18 16:50 BP 136/92 H 09/17/18 16:50 Pulse Ox 98 09/17/18 16:50 Primary Care Provider: Raúl Kohler - Medical History PMH: Anxiety, Asthma, Gastritis, Gastrointestinal Ulcer Denies: Depression, HTN (Pt denies), Chronic Kidney Disease - [facility] Procedures CLOSURE SKIN & SUBCUTANEOUS NEC (08/06/06) Family History: States: No Known Family Hx - Social History Hx Tobacco Use: No Hx Alcohol Use: No Hx Substance Use: No - Immunization History Hx Tetanus Toxoid Vaccination: No Hx Influenza Vaccination: No Hx Pneumococcal Vaccination: No Review Of Systems Except As Marked, All Systems Reviewed And Found Negative. Constitutional: Positive for: Malaise. Negative for: Fever, Chills Respiratory: Negative for: Shortness of Breath Gastrointestinal: Negative for: Nausea, Vomiting Genitourinary: Positive for: Frequency (increased urine frequency). Negative for: Dysuria, Hematuria Musculoskeletal: Negative for: Neck Pain Neurological: Negative for: Dizziness Physical Exam - Physical Exam Appears: Non-toxic, No Acute Distress, Other (anxious) Skin: Warm, Dry Head: Atraumatic, Normacephalic Eye(s): bilateral: Normal Inspection Oral Mucosa: Moist Neck: Supple Cardiovascular: Rhythm Regular, No Murmur Respiratory: Normal Breath Sounds, No Rales, No Rhonchi, No Wheezing Gastrointestinal/Abdominal: Soft, No Tenderness Extremity: Bilateral: Atraumatic, Normal ROM Neurological/Psych: Oriented x3, Normal Speech ED Course And Treatment - Laboratory Results Result Diagrams: 09/17/18 18:34 09/17/18 18:34 Lab Results: PT 12.1 SECONDS (9.7-12.2) 09/17/18 18:34 INR 1.1 09/17/18 18:34 APTT 35.4 SECONDS (21-34) H 09/17/18 18:34 Total Bilirubin 1.3 mg/dL (0.2-1.3) 09/17/18 18:34 AST 22 U/L (17-59) 09/17/18 18:34 ALT 18 U/L (21-72) L D 09/17/18 18:34 Alkaline Phosphatase 89 U/L (38-126) 09/17/18 18:34 Total Protein 8.6 g/dL (6.3-8.3) H 09/17/18 18:34 Albumin 4.7 g/dL (3.5-5.0) 09/17/18 18:34 Globulin 3.9 gm/dL (2.2-3.9) 09/17/18 18:34 Albumin/Globulin Ratio 1.2 (1.0-2.1) 09/17/18 18:34 Lipase 39 U/L (23-300) 09/17/18 18:34 O2 Sat by Pulse Oximetry: 98 (RA) Pulse Ox Interpretation: Normal - Other Rad CXR X-Ray: Read By Radiologist Interpretation: FINDINGS: LUNGS: No active pulmonary disease. PLEURA: No significant pleural effusion identified. No pneumothorax apparent. CARDIOVASCULAR: No aortic atherosclerotic calcification present. Normal cardiac size. No pulmonary vascular congestion. OSSEOUS STRUCTURES: No significant abnormalities. VISUALIZED UPPER ABDOMEN: Normal. OTHER FINDINGS: None. IMPRESSION: No active disease. No significant interval change compared to the prior examination(s). Medical Decision Making Medical Decision Making: Plan: --EKG --Labs --Chest XR --Glucose POC --IV fluids 1L --UA ro cardiac metablic infectious etiology labs imaging pending ptr easesesse in nad. eating in nad abd soft no ttp. labs neg. baseline axiety. stable for dc. Disposition - Disposition Disposition: HOME/ ROUTINE Disposition Time: 20:00 Condition: STABLE Additional Instructions: please see your doctor/clinic. return to er with worsenign. Instructions: Chest Pain, Acute Abdomen (Belly Pain), Dizziness, Nonvertigo, (DC) Forms: [employer] ([place]) - Clinical Impression Clinical Impression: Dizziness, Chest pain, Abdominal pain - Scribe Statement The provider has reviewed the documentation as recorded by the Radibbala Tay Provider Attestation: All medical record entries made by the Radibbala were at my direction and personally dictated by me. I have reviewed the chart and agree that the record accurately reflects my personal performance of the history, physical exam, medical decision making, and the department course for this patient. I have also personally directed, reviewed, and agree with the discharge instructions and disposition.
[2018-09-17] MEDS ORDERED: Sodium Chloride 0.9% 1,000 ML ONE (18:56)
[2018-09-17 20:09] LABS: URINE BILIRUBIN NEGATIVE (NEGATIVE); URINE BLOOD NEGATIVE (NEGATIVE); URINE CLARITY Clear (Clear); URINE COLOR Straw (YELLOW); URINE GLUCOSE (UA) NORMAL (Normal); URINE LEUKOCYTE ESTERASE NEG Leu/uL (Negative); URINE PROTEIN NEGATIVE (NEGATIVE); URINE UROBILINOGEN NORMAL mg/dL (0.2-1.0)
[2018-09-17 20:11] LABS: BARBITURATES, UR NEGATIVE (NEGATIVE); BENZODIAZEPINES, UR NEGATIVE (NEGATIVE); OPIATES, UR NEGATIVE (NEGATIVE); PHENCYCLIDINE, UR NEGATIVE (NEGATIVE)
[2018-09-17 20:36] VITALS: BP 142/86; PULSE 86; RESP 16; TEMP 99
[2018-09-17 22:13] VITALS: O2SAT 98
== END 2018-09-17 20:36 | disposition home or self-care (01) ==
LOC: C.ER 16:37
DX: R42 Dizziness and giddiness (principal); R07.9 Chest pain, unspecified; R10.9 Unspecified abdominal pain
CPT/HCPCS: 71046; 80053; 80324; 80345; 80346; 80349; 80353; 80358; 80361; 81001; 82948; 83690; 83992; 84484; 85025; 85610; 85730; 96360; 99285; J7030